=== PATIENT | female | born 1955 | race Caucasian/White ===

== ENCOUNTER → 2016-09-20 | Outpatient (CLI) | payer OTHER | LOC: FIMAGING 12:00 | DX: Z12.31 Encounter for screening mammogram for malignant neoplasm of breast (principal) | CPT/HCPCS: G0202 ==

== ENCOUNTER → 2018-06-06 | Outpatient (CLI) | payer OTHER | LOC: CIMAGING 08:16 | PROVIDERS: ATTEND Family Medicine | DX: Z12.31 Encounter for screening mammogram for malignant neoplasm of breast (principal) ==